=== PATIENT | female | born 1980 | race Caucasian/White ===

== ENCOUNTER 2016-11-14 10:09 | Emergency (ER) | payer BC ==
[2016-11-14 10:14] VITALS: BP 129/82; PULSE 80; TEMP 99; BMI 26.6
--- NOTE | 2016-11-14 10:25 | PDOC ---
History of Present Illness - General Chief Complaint: Choking Sensation Stated Complaint: CHOKING SENSATION Time Seen by Provider: 11/14/16 10:11 History Source: Patient Exam Limitations: No Limitations - History of Present Illness Initial Comments: 11/14/16 10:47 36-year-old female with no past medical history presents with warm body sensation in the oropharynx. The patient was chewing on a cinnamon raisin bagel when she was startled and she started to choke on the bagel. The patient coughed but couldn't cough it out. She denies difficulty breathing but reports that she has some food stuck sensation in her throat that she can't clear. Came into the ED for an evaluation. Past History - Past Medical History Allergies/Adverse Reactions: Allergies Allergy/AdvReac Type Severity Reaction Status Date / Time tetracycline [Tetracycline] Allergy Unknown Verified 11/14/16 10:11 Home Medications: Ambulatory Orders Famotidine [Pepcid] 20 mg PO BID #10 tablet 05/15/16 Norethindrone AC-Eth Estradiol [Microgestin 21 1-20 Tablet] 1 each PO DAILY Ondansetron HCl [Zofran] 4 mg PO TID PRN #12 tablet 05/15/16 Sucralfate Oral Suspension [Carafate *Oral Susp*] 1 gm PO BID #150 ml 11/14/16 GI Disorders: Yes (GERD) - Psycho/Social/Smoking Cessation Hx Anxiety: No Suicidal Ideation: No Smoking Status: No Smoking History: Former smoker Have you smoked in the past 12 months: No Number of Cigarettes Smoked Daily: 0 Information on smoking cessation initiated: No Hx Alcohol Use: No Drug/Substance Use Hx: No Substance Use Type: None Review of Systems - Review of Systems Able to Perform ROS?: Yes Comments:: 11/14/16 10:53 GENERAL/CONSTITUTIONAL: No fever, weakness. HEAD, EYES, EARS, NOSE AND THROAT: No change in vision. No ear pain or discharge. No sore throat. +stuck sensation in throat CARDIOVASCULAR: No chest pain or shortness of breath. RESPIRATORY: No cough, wheezing, or hemoptysis. GASTROINTESTINAL: No abdominal pain, nausea, vomiting, diarrhea, or decreased PO intolerance. GENITOURINARY: No dysuria, frequency, or change in urination. MUSCULOSKELETAL: No joint or muscle swelling or pain. No neck or back pain. SKIN: No rash NEUROLOGIC: No headache, vertigo, loss of consciousness, or change in strength/ sensation. ENDOCRINE: No increased thirst. No abnormal weight change. HEMATOLOGIC/LYMPHATIC: No anemia, easy bleeding, or history of blood clots. ALLERGIC/IMMUNOLOGIC: No hives or skin allergy. *Physical Exam - Vital Signs Last Vital Signs Temp Pulse Resp BP Pulse Ox 99 F 80 18 129/82 99 11/14/16 10:10 11/14/16 10:10 11/14/16 10:10 11/14/16 10:10 11/14/16 10:10 - Physical Exam Comments: 11/14/16 10:53 GENERAL: Awake, alert, and fully oriented, in no acute distress. HEAD: No signs of trauma EYES: PERRLA, EOMI, sclera anicteric, conjunctiva clear ENT: Auricles normal inspection, hearing grossly normal, nares patent, oropharynx clear without exudates. NECK: Normal ROM, supple, no lymphadenopathy, JVD, or masses EXTREMITIES: Normal range of motion, no edema. No clubbing or cyanosis. No cords, erythema, or tenderness NEUROLOGICAL: Cranial nerves II through XII grossly intact. Normal speech, normal gait SKIN: Warm, Dry, normal turgor, no rashes or lesions noted. Medical Decision Making - Medical Decision Making 11/14/16 10:53 Vital Signs Temp Pulse Resp BP Pulse Ox 99 F 80 18 129/82 99 11/14/16 10:10 11/14/16 10:10 11/14/16 10:10 11/14/16 10:10 11/14/16 10:10 Pt appears comfortable and stable. Posterior oropharynx on physical exam demonstrates no acute findings. However, likely with food bolus impaction in oropharynx. Will consult ENT and/or GI for further assistance. 11/14/16 11:[address] Mason Novoa. Given that patient is tolerating secretions and tolerating liquids, and given this is a bagel (and not meats), states reasonable to trial carafate BID for the next several days and reassessing. I had discussed plan with patient. Patient states she agrees and prefers this plan. I instructed the patient that if the next several days the symptoms do not improve and the sensation is still there, patient should call GI or return to the ED. She verbalizes understanding and agrees with plan. *DC/Admit/Observation/Transfer Diagnosis at time of Disposition: Food impaction of esophagus Qualifiers: Encounter type: initial encounter Qualified Code(s): T18.128A - Food in esophagus causing other injury, initial encounter - Discharge Dispostion Disposition: HOME Condition at time of disposition: Stable Admit: No - Prescriptions Prescriptions: Sucralfate Oral Suspension [Carafate *Oral Susp*] 1 gm PO BID #150 ml - Referrals Referrals: Mason Novoa MD [Staff Physician] - - Patient Instructions Printed Discharge Instructions: DI for Foreign Body, Swallowed-Adult Additional Instructions: Please take 1 gram of carafate every 12 hours for the next week. If you notice in the next several days that your symptoms do not improve, please call a GI doctor or return to the ER. Drink plenty of fluids.
[2016-11-14] MEDS ORDERED: SUCRALFATE 1 GM/10 ML UNIT DOSE CUPS PO ONE (11:08)
[2016-11-14] MEDS ORDERED: SUCRALFATE 1 GM/10 ML UNIT DOSE CUPS ONE (11:17)
== END 2016-11-14 11:26 | disposition home or self-care (01) ==
LOC: FER 10:09
DX: T18.128A Food in esophagus causing other injury, initial encounter (principal); Z87.891 Personal history of nicotine dependence
CPT/HCPCS: 99282-25